=== PATIENT | female | born 1985 | race African-American/Black ===

== ENCOUNTER 2018-01-01 10:10 | Emergency (ER) | payer MEDICAID ==
[~2018-01-01] VITALS: Ht 154.9 cm; Wt 66.0 kg
[2018-01-01] MEDS ORDERED: MORPHINE SULFATE 4 MG/ML CPJ (NOT FOR IM USE) IV STA (10:30)
[2018-01-01] MEDS ORDERED: ONDANSETRON HCL 4MG/2ML VIAL IV STA (10:30)
[2018-01-01] MEDS ORDERED: KETOROLAC 30MG/ML VIAL IV STA (10:30)
[2018-01-01] MEDS ORDERED: FAMOTIDINE 20MG/2ML VIAL IV STA (10:30)
[2018-01-01] MEDS ORDERED: SODIUM CHLORIDE 0.9% 1,000 ML IV ONE (10:30)
[2018-01-01 10:57] LABS: HEMATOCRIT. 41.7 % (36.0-48.0); HEMOGLOBIN. 13.7 g/dL (12.0-16.0); MEAN CORPUSCULAR HEMOGLOBIN 29.5 pg (28.0-32.0); MEAN PLATELET VOLUME 8.8 fl (7.4-10.4); PLATELET 225 x1000/uL (130-400); RED BLOOD CELL COUNT 4.63 mill/uL (4.2-5.4); RED CELL DISTRIBUTION WIDTH 15.1 % (11.6-14.6)
[2018-01-01 11:04] LABS: CHLORIDE 106 mEq/L (98-107); INR 1.1; PROTHROMBIN TIME 11.7 sec (9.4-11.6)
[2018-01-01 11:08] LABS: ETHANOL BLOOD < 10 mg/dL
[2018-01-01 11:13] LABS: HCG SCREEN NEGATIVE
[2018-01-01 11:45] LABS: CLARITY URINE CLOUDY (CLEAR); COLOR URINE AMBER (YELLOW); KETONES URINE TRACE (NEGATIVE); LEUKOCYTE ESTERASE URINE 2+ (NEGATIVE); NITRITE URINE NEGATIVE (NEGATIVE); OCCULT BLOOD URINE 3+ (NEGATIVE); PH URINE 6.5 (4.5-8.0); PROTEIN URINE 1+ (NEGATIVE); SPECIFIC GRAVITY URINE 1.028 (1.005-1.030)
[2018-01-01 11:49] LABS: PLATELET ESTIMATE NORMAL
[2018-01-01 12:03] LABS: *AMPHETAMINES SCREEN URINE NEGATIVE (NEGATIVE); *BARBITURATES SCREEN URINE NEGATIVE (NEGATIVE); *BENZODIAZEPINES SCREEN URINE NEGATIVE (NEGATIVE); *COCAINE SCREEN URINE NEGATIVE (NEGATIVE); CANNABINOID URINE SCREEN NEGATIVE (NEGATIVE); OPIATES URINE SCREEN NEGATIVE (NEGATIVE); PHENCYCLIDINE URINE SCREEN NEGATIVE (NEGATIVE)
[2018-01-01 12:14] LABS: METHADONE URINE SCREEN NEGATIVE (NEGATIVE)
[2018-01-01] MEDS ORDERED: MORPHINE SULFATE 4 MG/ML CPJ (NOT FOR IM USE) IV ONE (13:45)
[2018-01-01] MEDS ORDERED: LEVOFLOXACIN 250MG TABLET PO ONE (13:45)
[2018-01-01] MEDS ORDERED: ONDANSETRON HCL 4MG/2ML VIAL IV ONE (13:45)
[2018-01-01 14:15] VITALS: BP 114/66
== END 2018-01-01 14:27 | disposition home or self-care (01) ==
LOC: ER 10:23
DX: N30.90 Cystitis, unspecified without hematuria (principal)
CPT/HCPCS: 36415; 74176; 80053; 80305; 81003; 83690; 84484; 84703; 85025; 85610; 87086; 96361; 96374; 96375; 96376; 99285; G0482; J1885; J2270; J2405; J3490; J7030